=== PATIENT | male | born 1995 | race Caucasian/White ===

== ENCOUNTER 2023-10-31 23:04 | Emergency (ER) | payer SELFPAY ==
[~2023-10-31] VITALS: Ht 177.8 cm; Wt 100.7 kg
[~2023-10-31 23:04] MED LIST: AMPH10TA PO; QUET200T PO
[2023-10-31 23:33] VITALS: BP 160/99; PULSE 130; RESP 20; TEMP 97.8; O2SAT 96
[2023-11-01] MEDS: LIDOCAINE MPF 1% 10 MG/ML VIAL INJ ONE (00:30)
[2023-11-01] MEDS ORDERED: BACITRACIN OINT 500 UNITS/GM PKT TP ONE (01:36)
[2023-11-01] MEDS ORDERED: BACTO TP (01:43)
[2023-11-01 01:52] VITALS: BP 142/99; PULSE 100; RESP 20; TEMP 97.8; O2SAT 96
== END 2023-11-01 01:52 | disposition home or self-care (01) ==
LOC: MED 23:04
DX: S61.217A Laceration without foreign body of left little finger without damage to nail, initial encounter (principal); Z79.899 Other long term (current) drug therapy; W08.XXXA Fall from other furniture, initial encounter; Y93.89 Activity, other specified; Y92.89 Other specified places as the place of occurrence of the external cause; Y99.8 Other external cause status
CPT/HCPCS: 12001; 90471; 90715; 99283; J2001

== ENCOUNTER 2023-11-08 17:52 | Emergency (ER) | payer SELFPAY ==
[~2023-11-08] VITALS: Ht 177.8 cm; Wt 95.3 kg
[~2023-11-08 17:52] MED LIST changes: +BACTO TP
[2023-11-08 18:00] VITALS: BP 141/95; PULSE 107; RESP 19; TEMP 97.8; O2SAT 98
== END 2023-11-08 20:18 | disposition home or self-care (01) ==
LOC: MED 17:52
DX: S61.217D Laceration without foreign body of left little finger without damage to nail, subsequent encounter (principal); Z48.02 Encounter for removal of sutures; R03.0 Elevated blood-pressure reading, without diagnosis of hypertension; Z79.899 Other long term (current) drug therapy; Z88.8 Allergy status to other drugs, medicaments and biological substances; X58.XXXD Exposure to other specified factors, subsequent encounter
CPT/HCPCS: 99281

== ENCOUNTER 2023-11-13 10:58 | Emergency (ER) | payer MEDICAID ==
[~2023-11-13] VITALS: Ht 180.3 cm; Wt 95.3 kg
[2023-11-13 11:04] VITALS: BP 158/96; PULSE 106; RESP 24; TEMP 97.4; O2SAT 98
== END 2023-11-13 11:27 | disposition home or self-care (01) ==
LOC: MED 10:58
DX: S61.217D Laceration without foreign body of left little finger without damage to nail, subsequent encounter (principal); Z48.02 Encounter for removal of sutures; Z79.899 Other long term (current) drug therapy; X58.XXXD Exposure to other specified factors, subsequent encounter
CPT/HCPCS: 99281